=== PATIENT | female | born 1955 | race Caucasian/White ===

== ENCOUNTER → 2018-06-26 | Outpatient (CLI) | payer OTHER ==
--- NOTE | 2018-06-26 12:11 | Diagnostic Imaging Report ---
EXAMINATION: PA and lateral views of the chest. COMPARISON: None CLINICAL HISTORY: SOB, COPD DISCUSSION: Lines/tubes: None. Lungs: The lungs are mildly hyperinflated with mildly increased lucency in the upper lungs suggesting COPD. Mild prominence of the interstitial markings bilaterally, likely reflecting chronic interstitial changes. There is no evidence of pneumonia or pulmonary edema. Pleura: There is no pleural effusion or pneumothorax. Heart and mediastinum: Cardiomediastinal silhouette is unremarkable. Pulmonary vasculature is normal. Tortuous aorta. Bones and soft tissues: Age-indeterminate compression deformity of a midthoracic vertebral body (probably T9). Generalized osteopenia. Healed displaced fracture of the mid to distal left clavicular diaphysis. IMPRESSION: COPD changes. No consolidation or effusion. Age-indeterminate compression deformity of mid thoracic vertebral body (probably T9). Signed by: Dr. Blake Lambert M.D. on 06/26/2018 12:07 PM
== END ==
LOC: MAMMO 10:11
PROVIDERS: ATTEND Internal Medicine
DX: Z12.31 Encounter for screening mammogram for malignant neoplasm of breast (principal); R06.02 Shortness of breath; J44.9 Chronic obstructive pulmonary disease, unspecified
CPT/HCPCS: 71046; 77067